=== PATIENT | male | born 1940 | race Caucasian/White ===

== ENCOUNTER 2020-06-04 07:29 | Outpatient (CLI) | payer MEDICARE, OTHER ==
[2020-06-04 14:51] LABS: Anion Gap 14 mmol/L (10-20); BUN (Urea Nitrogen) 21 mg/dL (8.4-25.7); Calc. Creatinine Clearance 0 mL/min (70-130); Calcium 9.3 mg/dL (7.8-10.44); Carbon Dioxide 28 mmol/L (23-31); Chloride 104 mmol/L (98-107); Estimated GFR-MDRD 54; Glucose 93 mg/dL (83-110); Potassium 4.5 mmol/L (3.5-5.1); Sodium 141 mmol/L (136-145)
--- NOTE | 2020-06-04 16:47 | EKG ---
Test Reason : PREOP Blood Pressure : / mmHG Vent. Rate : 072 BPM Atrial Rate : 072 BPM P-R Int : 154 ms QRS Dur : 096 ms QT Int : 390 ms P-R-T Axes : 065 018 050 degrees QTc Int : 427 ms Normal sinus rhythm Normal ECG Confirmed by DR. Chelsea CARRASCO ([id number]) on 06/04/2020 4:47:21 PM Referred By: Ronna SAUNDERS Confirmed By:DR. Chelsea CARRASCO
[2020-06-05 14:01] LABS: SARS-CoV-2 MS2 Positive; SARS-CoV-2 N Gene Negative; SARS-CoV-2 S Gene Negative; SARS-CoV-2 by NAA Not Detected (NotDetected); SARS-CoV-2 orf1ab Negative
== END 2020-06-04 07:30 | disposition home or self-care (01) ==
LOC: LABBT 07:29
PROVIDERS: ATTEND Surgery
DX: Z01.818 Encounter for other preprocedural examination (principal); Z20.828 Contact with and (suspected) exposure to other viral communicable diseases; C43.9 Malignant melanoma of skin, unspecified
CPT/HCPCS: 80048; 93005; U0003; 87635; 93010

== ENCOUNTER 2021-09-28 09:33 | Outpatient (CLI) | payer MEDICARE | END 2021-09-28 09:34 | disposition home or self-care (01) | LOC: SCSMRI 09:33 | PROVIDERS: ATTEND Internal Medicine | DX: M54.2 Cervicalgia (principal); M48.02 Spinal stenosis, cervical region | CPT/HCPCS: 72141 ==

== ENCOUNTER 2022-12-20 10:45 | Inpatient (IN) | payer MEDICARE ==
[2022-12-26] MEDS ORDERED: Fentanyl 250 MCG/5 ML VIAL ONE ×2 (06:15→11:27)
[2022-12-26] MEDS ORDERED: Midazolam HCl 5 mg/5 ml Vial ONE ×2 (06:16→09:44)
[2022-12-26] MEDS ORDERED: Albumin 5% 500 ML ONE (06:19)
[2022-12-26] MEDS ORDERED: Heparin 10,000 UNITS/1 ML VIAL 30,000 UNITS in Sodium Chloride 0.9% 1,000 ML FS SCH (07:00)
[2022-12-26 07:13] LABS: SARS-CoV-2 NAA Rapid Test Not Detected (NotDetected)
[2022-12-26] MEDS ORDERED: Sodium Chloride 0.9% 100 ML ONE (07:21)
[2022-12-26] MEDS ORDERED: CEFAZOLIN 2 GM VIAL ONE (07:21)
[2022-12-26] MEDS ORDERED: PROPOFOL 200 MG/20 ML VIAL ONE (07:37)
[2022-12-26] MEDS ORDERED: Papaverine 60 MG/2 ML VIAL ONE (07:37)
[2022-12-26] MEDS ORDERED: Vecuronium 10 MG VIAL ONE (07:37)
[2022-12-26] MEDS ORDERED: Heparin 30,000 units/30 ml VIAL ONE (07:37)
[2022-12-26] MEDS ORDERED: Protamine Sulfate 250 MG/25 ML VIAL ONE (07:37)
[2022-12-26] MEDS ORDERED: Lidocaine 2% PF 100 mg/5 ml Syringe ONE (07:37)
[2022-12-26] MEDS ORDERED: Potassium Chloride 60 MEQ/30 ML VIAL ONE (07:37)
[2022-12-26] MEDS ORDERED: Calcium Chloride 1 GM/10 ML Abboject SYRINGE ONE (07:37)
[2022-12-26] MEDS ORDERED: Magnesium 5 GM/10 ML VIAL ONE (07:37)
[2022-12-26] MEDS ORDERED: Vancomycin 1 GM VIAL ONE (07:37)
[2022-12-26] MEDS ORDERED: Aminocaproic Acid 5 GM/20 ML VIAL ONE (07:37)
[2022-12-26] MEDS ORDERED: Labetalol HCl 100 MG/20 ML VIAL ONE (07:37)
[2022-12-26] MEDS ORDERED: Thrombin 5000 UNITS/5 ML VIAL ONE (07:37)
[2022-12-26] MEDS ORDERED: Heparin 5,000 UNITS/ML VIAL ONE (07:37)
[2022-12-26] MEDS ORDERED: Mannitol 12.5 GM/50 ML ONE (07:37)
[2022-12-26] MEDS ORDERED: Sodium Bicarb 50 MEQ/50 ML VIAL ONE (07:37)
[2022-12-26] MEDS ORDERED: Cardioplegic Soln 1,000 ML BAG ONE (07:37)
[2022-12-26] MEDS ORDERED: Albumin 25% 25 GM/100 ML BOT ONE (07:37)
[2022-12-26] MEDS ORDERED: Bupivacaine HCl 0.5%/Epinephrine 1:200,000/PF 30 ml Vial ONE (09:42)
[2022-12-26] MEDS ORDERED: Nitroglycerin 50 MG/250 ML BOT 250 ML ONE (10:57)
[2022-12-26] MEDS ORDERED: Insulin Regular 300 UNITS/3 ML VIAL ONE (11:18)
[2022-12-26 11:19] LABS: Base Excess (BEa) -0.8 mEq/L (-2.0 to +3.0); CO2 Tension 45.7 mmHg (35.0-45.0); Calcium, Ionized (arterial) 1.13 mmol/L (1.12-1.30); Carboxyhemoglobin (COHb) 0.8 gm% (0.0-3.0); Hemoglobin (Hb) 12.5 g/dL (14.0-18.0); O2 Tension (PaO2), arterial 75.7 mmHg (> 60.0); Potassium - ABG Lab 4.28 mmol/L (3.70-5.30); pH, Arterial 7.36 (7.35-7.45)
[2022-12-26 11:20] LABS: ALV-art Gradient 294.975 mmHg (0-20); Puncture Site Arterial Line
[2022-12-26] MEDS: Lactated Ringer's 1,000 ML IV SCH (11:20)
[2022-12-26] MEDS ORDERED: Mag-Al 1200 mg/1200 mg/30 ML UDCUP PO PRN (11:24)
[2022-12-26] MEDS ORDERED: Post-Op Insulin Drip Protocol IVPB SCH (11:24)
[2022-12-26] MEDS ORDERED: Guaifenesin DM 100-10/5 ML UDCUP PO PRN (11:24)
[2022-12-26] MEDS ORDERED: Bisacodyl 10 MG SUPP PR PRN (11:24)
[2022-12-26] MEDS ORDERED: Morphine 2 MG/ML VIAL SLOW IVP PRN (11:24)
[2022-12-26] MEDS ORDERED: Acetaminophen 325 MG TAB PO PRN (11:24)
[2022-12-26] MEDS ORDERED: hydrALAZINE 20 MG/ML VIAL SLOW IVP PRN (11:24)
[2022-12-26] MEDS ORDERED: NOREPINEPHRINE 8 MG/250 ML-D5W 250 ML IVPB PRN (11:24)
[2022-12-26] MEDS ORDERED: niCARdipine 25 MG in Sodium Chloride 0.9% 250 ML 250 ML IVPB PRN (11:24)
[2022-12-26] MEDS ORDERED: Ondansetron PF 4 MG/2 ML Vial IVP PRN (11:24)
[2022-12-26] MEDS ORDERED: DOPamine 400 MG/D5W 250 ML 250 ML IVPB PRN (11:24)
[2022-12-26] MEDS ORDERED: Hetastarch 6% 500 ML 500 ML IVPB PRN (11:24)
[2022-12-26] MEDS ORDERED: Ipratropium/Albuterol 3 ML NEB NEB PRN (11:24)
[2022-12-26] MEDS ORDERED: Nitroglycerin 50 MG/250 ML BOT 250 ML IVPB PRN (11:24)
[2022-12-26] MEDS ORDERED: Bisacodyl 5 MG TAB PO PRN (11:24)
[2022-12-26] MEDS ORDERED: Fentanyl 100 MCG/2 ML VIAL SLOW IVP PRN ×2 (11:24)
[2022-12-26] MEDS ORDERED: Morphine 4 MG/ML VIAL ONE ×2 (11:30→11:50)
[2022-12-26 11:42] LABS: #Eosinphils 0.1 thou/uL (0.0-0.7); #Lymphocytes 1.3 thou/uL (1.20-3.40); #Monocytes 0.4 thou/uL (0.11-0.59); #Neutrophils 12.2 thou/uL (1.40-6.50); %Basophils 0.1 % (0.0-1.0); %Eosinophils 0.4 % (0.0-10.0); %Lymphocytes 9.5 % (21.0-51.0); %Monocytes 2.8 % (0.0-10.0); %Neutrophils 87.2 % (42.0-75.0); Hemoglobin 12.2 g/dL (14.0-18.0); Mean Corpuscular Hemoglobin 30.1 pg (27.0-31.0); Mean Corpuscular Volume 93.9 fl (78.0-98.0); Mean Platelet Volume 7.6 fL (7.4-10.4); Platelet Count 141 10x3/uL (130-400); RBC Distribution Width 12.6 % (11.5-14.5); Red Blood Cell (RBC) Count 4.06 mill/uL (4.70-6.10)
[2022-12-26 11:55] LABS: Anion Gap 13 mmol/L (10-20); BUN (Urea Nitrogen) 18 mg/dL (8.4-25.7); Calc. Creatinine Clearance 83 mL/min (70-130); Calcium 7.9 mg/dL (7.8-10.44); Carbon Dioxide 21 mmol/L (23-31); Chloride 111 mmol/L (98-107); Estimated GFR 70; Glucose 168 mg/dL (83-110); Potassium 4.2 mmol/L (3.5-5.1); Sodium 141 mmol/L (136-145)
[2022-12-26] MEDS ORDERED: Dextrose 5% in Water 1,000 ML IV PRN (12:00)
[2022-12-26] MEDS ORDERED: Dextrose 50% Abboject 50 ML SYRINGE SLOW IVP PRN (12:00)
[2022-12-26] MEDS ORDERED: Insulin Regular 300 UNITS/3 ML VIAL SC PRN (12:00)
[2022-12-26] MEDS ORDERED: HUMULIN R 100 UNITS in Sodium Chloride 0.9% 100 ML IVPB SCH (12:00)
[2022-12-26 12:15] LABS: INR-International Normal Ratio 1.4
[2022-12-26 12:16] LABS: PTT 32.1 sec (22.9-36.1)
[2022-12-26] MEDS ORDERED: Lorazepam 2 MG/ML VIAL ONE (12:37)
[2022-12-26] MEDS ORDERED: Lorazepam 2 MG/ML VIAL SLOW IVP SCH (12:45)
[2022-12-26] MEDS ORDERED: Ketorolac Tromethamine 30 MG/ML VIAL IVP SCH (12:45)
[2022-12-26] MEDS ORDERED: FLU VACC QS2022-23(65YR UP)/PF 240 MCG/0.7 ML SYRINGE IM ONE (14:00)
[2022-12-26] MEDS: CEFAZOLIN 2 GM in Sodium Chloride 0.9% 100 ML IVPB SCH ×2 (14:48→21:00)
[2022-12-26 17:32] LABS: Hemoglobin 12.6 g/dL (14.0-18.0)
[2022-12-26 17:37] LABS: Actual Bicarbonate (HCO3a) 25.8 mEq/L (22-28); Base Excess (BEa) 0.5 mEq/L (-2.0 to +3.0); CO2 Tension 43.9 mmHg (35.0-45.0); Calcium, Ionized (arterial) 1.13 mmol/L (1.12-1.30); Carboxyhemoglobin (COHb) 0.7 gm% (0.0-3.0); Hemoglobin (Hb) 13.1 g/dL (14.0-18.0); O2 Tension (PaO2), arterial 96.5 mmHg (> 60.0); Potassium - ABG Lab 3.87 mmol/L (3.70-5.30); pH, Arterial 7.39 (7.35-7.45)
[2022-12-26 17:43] LABS: ALV-art Gradient 133.825 mmHg (0-20); Puncture Site Arterial Line
[2022-12-26 17:48] LABS: Potassium 3.8 mmol/L (3.5-5.1)
[2022-12-26] MEDS: Famotidine/PF 20 mg/2ml Vial SLOW IVP SCH (20:59)
[2022-12-26] MEDS: traMADol HCl 50 MG TAB PO PRN (22:16)
[2022-12-27] MEDS: Lactated Ringer's 1,000 ML IV SCH ×2 (00:53→14:05)
[2022-12-27 04:12] LABS: #Lymphocytes 0.7 thou/uL (1.20-3.40); #Neutrophils 11.6 thou/uL (1.40-6.50); %Eosinophils 0.1 % (0.0-10.0); %Lymphocytes 5.5 % (21.0-51.0); %Monocytes 7.8 % (0.0-10.0); %Neutrophils 86.6 % (42.0-75.0); Hemoglobin 11.9 g/dL (14.0-18.0); Mean Corpuscular HGB CONC 32.4 g/dL (32.0-36.0); Mean Corpuscular Hemoglobin 30.2 pg (27.0-31.0); Mean Corpuscular Volume 93.3 fl (78.0-98.0); Mean Platelet Volume 8.2 fL (7.4-10.4); Platelet Count 125 10x3/uL (130-400); RBC Distribution Width 12.8 % (11.5-14.5); Red Blood Cell (RBC) Count 3.95 mill/uL (4.70-6.10); White Blood Cell (WBC) Count 13.4 10x3/uL (4.8-10.8)
[2022-12-27 04:35] LABS: Anion Gap 11 mmol/L (10-20); BUN (Urea Nitrogen) 20 mg/dL (8.4-25.7); Calc. Creatinine Clearance 93 mL/min (70-130); Carbon Dioxide 24 mmol/L (23-31); Chloride 112 mmol/L (98-107); Estimated GFR 79; Glucose 130 mg/dL (83-110); Potassium 3.9 mmol/L (3.5-5.1); Sodium 143 mmol/L (136-145)
[2022-12-27] MEDS: CEFAZOLIN 2 GM in Sodium Chloride 0.9% 100 ML IVPB SCH (06:23)
[2022-12-27] MEDS: Potassium Chloride 20 MEQ/100 ML PREMIX BAG IVPB PRN (07:51)
[2022-12-27] MEDS: Famotidine/PF 20 mg/2ml Vial SLOW IVP SCH ×2 (08:32→21:07)
[2022-12-27] MEDS: Aspirin 325 MG TAB PO SCH (08:32)
[2022-12-27] MEDS: traMADol HCl 50 MG TAB PO PRN ×2 (11:23→15:42)
[2022-12-27] MEDS ORDERED: Insulin Glargine 30 UNITS/0.3 ML VIAL SC PRN (11:56)
[2022-12-28 05:04] LABS: #Lymphocytes 1.1 thou/uL (1.20-3.40); #Monocytes 1.5 thou/uL (0.11-0.59); #Neutrophils 12.9 thou/uL (1.40-6.50); %Eosinophils 0.1 % (0.0-10.0); %Lymphocytes 7.3 % (21.0-51.0); %Monocytes 9.4 % (0.0-10.0); %Neutrophils 83.1 % (42.0-75.0); Hemoglobin 12.1 g/dL (14.0-18.0); Mean Corpuscular HGB CONC 32.3 g/dL (32.0-36.0); Mean Corpuscular Hemoglobin 30.5 pg (27.0-31.0); Mean Corpuscular Volume 94.5 fl (78.0-98.0); Mean Platelet Volume 8.2 fL (7.4-10.4); Platelet Count 124 10x3/uL (130-400); Red Blood Cell (RBC) Count 3.97 mill/uL (4.70-6.10); White Blood Cell (WBC) Count 15.5 10x3/uL (4.8-10.8)
[2022-12-28] MEDS: Potassium Chloride 20 MEQ/100 ML PREMIX BAG IVPB PRN (05:24)
[2022-12-28 05:27] LABS: Anion Gap 11 mmol/L (10-20); BUN (Urea Nitrogen) 17 mg/dL (8.4-25.7); Calc. Creatinine Clearance 109 mL/min (70-130); Calcium 8.2 mg/dL (7.8-10.44); Carbon Dioxide 26 mmol/L (23-31); Chloride 106 mmol/L (98-107); Estimated GFR 88; Glucose 150 mg/dL (83-110); Potassium 3.6 mmol/L (3.5-5.1); Sodium 139 mmol/L (136-145)
[2022-12-28] MEDS: Lactated Ringer's 1,000 ML IV SCH (06:15)
[2022-12-28 07:17] VITALS: BMI 34.9
[2022-12-28] MEDS: Famotidine/PF 20 mg/2ml Vial SLOW IVP SCH (07:57)
[2022-12-28] MEDS: Aspirin 325 MG TAB PO SCH (07:57)
[2022-12-28] MEDS: traMADol HCl 50 MG TAB PO PRN ×2 (12:18→17:21)
[2022-12-28] MEDS ORDERED: Furosemide 40 MG TAB PO SCH (16:45)
[2022-12-28] MEDS: Potassium Chloride 10 MEQ TAB PO SCH (17:21)
[2022-12-28] MEDS ORDERED: Nitroglycerin 0.4 MG TAB (25 Tab Bottle) SL PRN (18:57)
[2022-12-28] MEDS: Atorvastatin Calcium 40 MG TAB PO SCH (21:02)
[2022-12-28] MEDS: Famotidine 20 MG TAB PO SCH (21:02)
[2022-12-29] MEDS: traMADol HCl 50 MG TAB PO PRN ×3 (00:32→13:50)
[2022-12-29 04:52] LABS: #Eosinphils 0.1 thou/uL (0.0-0.7); #Lymphocytes 1.4 thou/uL (1.20-3.40); #Monocytes 1.4 thou/uL (0.11-0.59); #Neutrophils 11.7 thou/uL (1.40-6.50); %Basophils 0.2 % (0.0-1.0); %Eosinophils 0.4 % (0.0-10.0); %Lymphocytes 9.7 % (21.0-51.0); %Monocytes 9.7 % (0.0-10.0); Hemoglobin 12.2 g/dL (14.0-18.0); Mean Corpuscular HGB CONC 32.7 g/dL (32.0-36.0); Mean Corpuscular Hemoglobin 30.5 pg (27.0-31.0); Mean Corpuscular Volume 93.3 fl (78.0-98.0); Mean Platelet Volume 8.1 fL (7.4-10.4); Platelet Count 126 10x3/uL (130-400); RBC Distribution Width 12.7 % (11.5-14.5); Red Blood Cell (RBC) Count 3.99 mill/uL (4.70-6.10); White Blood Cell (WBC) Count 14.7 10x3/uL (4.8-10.8)
[2022-12-29 05:16] LABS: Anion Gap 12 mmol/L (10-20); BUN (Urea Nitrogen) 18 mg/dL (8.4-25.7); Calc. Creatinine Clearance 117 mL/min (70-130); Calcium 8.3 mg/dL (7.8-10.44); Carbon Dioxide 24 mmol/L (23-31); Chloride 104 mmol/L (98-107); Estimated GFR 90; Glucose 138 mg/dL (83-110); Potassium 3.3 mmol/L (3.5-5.1); Sodium 137 mmol/L (136-145)
[2022-12-29] MEDS ORDERED: Potassium Chloride 20 MEQ TAB PO SCH (08:15)
[2022-12-29] MEDS: Aspirin 325 MG TAB PO SCH (09:12)
[2022-12-29] MEDS: Famotidine 20 MG TAB PO SCH ×2 (09:12→20:14)
[2022-12-29] MEDS: Potassium Chloride 10 MEQ TAB PO SCH ×2 (09:15→16:45)
[2022-12-29] MEDS: Furosemide 40 MG TAB PO SCH (09:15)
[2022-12-29] MEDS: Atorvastatin Calcium 40 MG TAB PO SCH (20:14)
[2022-12-30] MEDS: Aspirin 325 MG TAB PO SCH (09:08)
[2022-12-30] MEDS: Potassium Chloride 10 MEQ TAB PO SCH ×2 (09:09→17:36)
[2022-12-30] MEDS: Furosemide 40 MG TAB PO SCH (09:09)
[2022-12-30] MEDS: Famotidine 20 MG TAB PO SCH ×2 (09:09→20:57)
[2022-12-30] MEDS: traMADol HCl 50 MG TAB PO PRN (14:41)
[2022-12-30] MEDS: Atorvastatin Calcium 40 MG TAB PO SCH (20:57)
[2022-12-31] MEDS: Famotidine 20 MG TAB PO SCH ×2 (08:35→20:53)
[2022-12-31] MEDS: Potassium Chloride 10 MEQ TAB PO SCH ×2 (08:35→16:32)
[2022-12-31] MEDS: Aspirin 325 MG TAB PO SCH (08:36)
[2022-12-31] MEDS: Furosemide 40 MG TAB PO SCH (08:36)
[2022-12-31] MEDS: Atorvastatin Calcium 40 MG TAB PO SCH (20:53)
[2023-01-01] MEDS: traMADol HCl 50 MG TAB PO PRN ×2 (04:05→08:49)
[2023-01-01] MEDS: Potassium Chloride 10 MEQ TAB PO SCH (08:47)
[2023-01-01] MEDS: Furosemide 40 MG TAB PO SCH (08:47)
[2023-01-01] MEDS: Famotidine 20 MG TAB PO SCH (08:47)
[2023-01-01] MEDS: Aspirin 325 MG TAB PO SCH (08:47)
[2023-01-01 11:42] VITALS: BP 108/59; TEMP 98.7
[2023-01-01 13:34] LABS: Analyzer IN Cardio OR; Base Excess (BEa) -3.2 mEq/L (-2.0 to +3.0); CO2 Tension 34.9 mmHg (35.0-45.0); Calcium, Ionized (arterial) 1.15 mmol/L (1.12-1.30); Carboxyhemoglobin (COHb) 0.8 gm% (0.0-3.0); Hemoglobin (Hb) 13.2 g/dL (14.0-18.0); O2 Tension (PaO2), arterial 397.4 mmHg (> 60.0); Potassium - ABG Lab 3.97 mmol/L (3.70-5.30)
[2023-01-01 13:34] LABS: Actual Bicarbonate (HCO3a) 24.4 mEq/L (22-28); Analyzer IN Cardio OR; Base Excess (BEa) -1.3 mEq/L (-2.0 to +3.0); CO2 Tension 44.8 mmHg (35.0-45.0); Calcium, Ionized (arterial) 1.14 mmol/L (1.12-1.30); Carboxyhemoglobin (COHb) 0.8 gm% (0.0-3.0); Hemoglobin (Hb) 12.9 g/dL (14.0-18.0); O2 Tension (PaO2), arterial 394.9 mmHg (> 60.0); pH, Arterial 7.35 (7.35-7.45)
[2023-01-01 13:35] LABS: Actual Bicarbonate (HCO3a) 24.9 mEq/L (22-28); Analyzer IN Cardio OR; CO2 Tension 46.9 mmHg (35.0-45.0); Calcium, Ionized (arterial) 1.06 mmol/L (1.12-1.30); Carboxyhemoglobin (COHb) 0.1 gm% (0.0-3.0); Hemoglobin (Hb) 9.5 g/dL (14.0-18.0); O2 Tension (PaO2), arterial 367.8 mmHg (> 60.0); Potassium - ABG Lab 4.77 mmol/L (3.70-5.30); pH, Arterial 7.34 (7.35-7.45)
[2023-01-01 13:35] LABS: Actual Bicarbonate (HCO3v) 24 mEq/L (22-28); Analyzer IN Cardio OR; Base Excess -2.9 mEq/L (-2.0 to +3.0); Calcium, Ionized (venous) 1.08 mmol/L (1.16-1.32); Chloride (VBG) 106 mmol/L (98-106); Hemoglobin (Hb) 9.5 g/dL (12.6-17.4); Potassium (VBG) 4.81 mmol/L (3.70-5.30); Sodium 136.4 mmol/L (133-146); pH (venous) 7.31 (7.32-7.43)
[2023-01-01 13:35] LABS: Analyzer IN Cardio OR; Base Excess (BEa) -3.8 mEq/L (-2.0 to +3.0); CO2 Tension 42.7 mmHg (35.0-45.0); Calcium, Ionized (arterial) 1.07 mmol/L (1.12-1.30); Carboxyhemoglobin (COHb) 0.2 gm% (0.0-3.0); Hemoglobin (Hb) 9.5 g/dL (14.0-18.0); O2 Tension (PaO2), arterial 478.7 mmHg (> 60.0); Potassium - ABG Lab 4.81 mmol/L (3.70-5.30); pH, Arterial 7.33 (7.35-7.45)
[2023-01-01 13:36] LABS: Actual Bicarbonate (HCO3a) 19.8 mEq/L (22-28); Analyzer IN Cardio OR; Base Excess (BEa) -4.3 mEq/L (-2.0 to +3.0); Calcium, Ionized (arterial) 1.14 mmol/L (1.12-1.30); Carboxyhemoglobin (COHb) 1.2 gm% (0.0-3.0); Hemoglobin (Hb) 10.6 g/dL (14.0-18.0); O2 Tension (PaO2), arterial 281.4 mmHg (> 60.0); Potassium - ABG Lab 4.27 mmol/L (3.70-5.30)
[2023-01-01 13:36] LABS: Puncture Site Arterial Line
[2023-01-01 13:37] LABS: Puncture Site Arterial Line
[2023-01-01 13:37] LABS: Puncture Site Arterial Line
[2023-01-01 13:38] LABS: Puncture Site Arterial Line
[2023-01-01 13:38] LABS: Puncture Site Arterial Line
== END 2023-01-01 14:01 | disposition home or self-care (01) | DRG 234 ==
LOC: SURG A 12-26 05:46 → CCU 12-26 10:14 → 2NO 12-29 14:30
PROVIDERS: ADMIT Thoracic Surgery (Cardiothoracic Vascular Surgery); ATTEND Thoracic Surgery (Cardiothoracic Vascular Surgery)
PROC: 02100Z9 Bypass Coronary Artery, One Artery from Left Internal Mammary, Open Approach (ICD-10-PCS; principal; 2022-12-26)
PROC: 025S0ZZ Destruction of Right Pulmonary Vein, Open Approach (ICD-10-PCS; 2022-12-26)
PROC: 021009W Bypass Coronary Artery, One Artery from Aorta with Autologous Venous Tissue, Open Approach (ICD-10-PCS; 2022-12-26)
PROC: 06BQ4ZZ Excision of Left Saphenous Vein, Percutaneous Endoscopic Approach (ICD-10-PCS; 2022-12-26)
PROC: 025T0ZZ Destruction of Left Pulmonary Vein, Open Approach (ICD-10-PCS; 2022-12-26)
PROC: 02L70CK Occlusion of Left Atrial Appendage with Extraluminal Device, Open Approach (ICD-10-PCS; 2022-12-26)
PROC: 5A1221Z Performance of Cardiac Output, Continuous (ICD-10-PCS; 2022-12-26)
PROC: 4A133R1 Monitoring of Arterial Saturation, Peripheral, Percutaneous Approach (ICD-10-PCS; 2022-12-26)
DX: I25.10 Atherosclerotic heart disease of native coronary artery without angina pectoris (principal); I97.51 Accidental puncture and laceration of a circulatory system organ or structure during a circulatory system procedure; Z20.822 Contact with and (suspected) exposure to COVID-19; I48.0 Paroxysmal atrial fibrillation; E78.2 Mixed hyperlipidemia; Z88.6 Allergy status to analgesic agent; Z79.84 Long term (current) use of oral hypoglycemic drugs; Z79.82 Long term (current) use of aspirin; Z79.899 Other long term (current) drug therapy; Z90.49 Acquired absence of other specified parts of digestive tract; Z90.89 Acquired absence of other organs; Z82.49 Family history of ischemic heart disease and other diseases of the circulatory system; Z82.3 Family history of stroke; Y83.8 Other surgical procedures as the cause of abnormal reaction of the patient, or of later complication, without mention of misadventure at the time of the procedure
CPT/HCPCS: 36415; 36416; 36430; 71045; 80048; 82805; 82947; 85025; 85027; 85610; 85730; 86850; 86900; 86901; 93005; 93010; 93798; 94002; C1751; C1776; J1643; J1644; J1815; J1885; J2001; J2060; J2150; J2250; J2270; J2440; J2704; J2720; J3010; J3370; J3475; J3480; J3490; J7050; J7120; P9045; P9047; S0017; S0028; U0002

== ENCOUNTER 2022-12-25 14:11 | Outpatient (CLI) | payer MEDICARE ==
[2022-12-25 15:09] LABS: Hemoglobin 14.6 g/dL (13.5-17.5); Mean Corpuscular HGB CONC 31.8 g/dL (32.0-36.0); Mean Corpuscular Hemoglobin 28.8 pg (27.0-33.0); Mean Corpuscular Volume 90.5 fl (81.2-95.1); Platelet Count 203 10x3/uL (150-450); RBC Distribution Width 13.6 % (11.5-14.5); Red Blood Cell (RBC) Count 5.07 10x6/uL (4.32-5.72); White Blood Cell (WBC) Count 7.8 10x3/uL (3.5-10.5)
[2022-12-25 15:14] LABS: Anion Gap 15 mmol/L (10-20); BUN (Urea Nitrogen) 20 mg/dL (8.4-25.7); Calc. Creatinine Clearance 0 mL/min (70-130); Calcium 9.7 mg/dL (7.8-10.44); Carbon Dioxide 29 mmol/L (23-31); Chloride 106 mmol/L (98-107); Estimated GFR 58; Glucose 87 mg/dL (83-110); Potassium 4.8 mmol/L (3.5-5.1); Sodium 145 mmol/L (136-145)
== END 2022-12-25 14:12 | disposition home or self-care (01) ==
LOC: LABBT 14:11
PROVIDERS: ATTEND Thoracic Surgery (Cardiothoracic Vascular Surgery)
DX: Z01.812 Encounter for preprocedural laboratory examination (principal); I25.10 Atherosclerotic heart disease of native coronary artery without angina pectoris
CPT/HCPCS: 80048; 85027